=== PATIENT | female | born 1985 | race Caucasian/White ===

== ENCOUNTER 2017-01-15 05:57 | Emergency (ER) | payer OTHER ==
[~2017-01-15] VITALS: Ht 162.6 cm; Wt 64.9 kg
--- NOTE | 2017-01-15 06:05 | ED PSYCHIATRIC COMPLAINT ---
History of Present Illness General Chief Complaint: Psychiatric Related Complaint Stated Complaint: "REALLY BAD PANIC ATTACKS, DEPRESSION" PER PT -SI Source: patient Exam Limitations: no limitations Vital Signs & Intake/Output Vital Signs & Intake/Output Vital Signs Date Time Temp Pulse Resp B/P Pulse O2 O2 Flow FiO2 Ox Delivery Rate 01/15 0625 97.8 91 18 134/88 96 Room Air Reconcile Medications Bupropion HCl (Wellbutrin XL) 150 MG TAB.ER.24H 1 TAB PO QAM DEPRESSION Clonazepam 1 MG TABLET 1 TAB PO BIDP PRN ANXIETY TEN...BD [id number] Triage Nurses Notes Reviewed? yes Onset: Gradual Duration: week(s):, waxing and waning Timing: recent history Severity: moderate Associated Symptoms: anxiety HPI: 31 yo woman h/o long standing anxiety disorder, was previously on clonazepam/xanax/ wellbutrin, presents with continued anxiety. She reports that her physician is no longer able to prescribe controlled substances. She has an appointment at the [facility] in 2 weeks. She denies Si/Hi/Hallucinations. She is otherwise well. Past History Travel History Traveled to [place] past 21 day No Medical History Any Pertinent Medical History? see below for history Surgical History Surgical History: none Family History Hx Contributory? No Review of Systems Review of Systems Constitutional: Reports: no symptoms. EENTM: Reports: no symptoms. Respiratory: Reports: no symptoms. Cardiovascular: Reports: no symptoms. GI: Reports: no symptoms. Genitourinary: Reports: no symptoms. Musculoskeletal: Reports: no symptoms. Skin: Reports: no symptoms. Neurological/Psychological: Reports: no symptoms. Hematologic/Endocrine: Reports: no symptoms. Immunologic/Allergic: Reports: no symptoms. All Other Systems: Reviewed and Negative Physical Exam Physical Exam General Appearance: well developed/nourished, mild distress Head: atraumatic Eyes: Bilateral: normal appearance. Ears, Nose, Throat: normal pharynx, normal ENT inspection, hearing grossly normal Neck: normal inspection, supple Respiratory: normal breath sounds Cardiovascular: regular rate/rhythm Gastrointestinal: soft, non-tender Extremities: normal range of motion Neurological/Psychiatric: no motor/sensory deficits, anxious, oriented x 3 Appearance/Memory/Insight: appropriate appearance, appropriate insight Behavoir/Eye Contact/Speech: cooperative Thoughts/Hallucinations: no apparent hallucination Skin: intact, normal color, warm/dry SAD PERSONS Done? patient not suicidal Progress Differential Diagnosis: anxiety vs depression vs other. Plan of Care: pt denies SI/HI/Hallucinations... has appt in 2 weeks with primary care... I gave bridge rx for wellbutrin and clonazepam as well as referral to care. Encouraged close follow up. Departure Departure Disposition: HOME OR SELF CARE Condition: Stable Clinical Impression Primary Impression: Anxiety Departure Forms: Customer Survey General Discharge Information Prescriptions: Current Visit Scripts Bupropion HCl (Wellbutrin XL) 1 TAB PO QAM #14 TAB Clonazepam 1 TAB PO BIDP PRN ANXIETY #10 TAB TEN...BD [id number]
[2017-01-15] MEDS ORDERED: WELLBUTRIN XL150 M2 PO (06:20)
[2017-01-15] MEDS ORDERED: CLONAZEPAM1 M2 PO ×3 (06:20→06:21)
[2017-01-15 06:25] VITALS: BP 134/88
== END 2017-01-15 06:34 ==
LOC: ERH 05:57
DX: F41.9 Anxiety disorder, unspecified (principal); F13.10 Sedative, hypnotic or anxiolytic abuse, uncomplicated; F11.10 Opioid abuse, uncomplicated; F32.9 Major depressive disorder, single episode, unspecified
CPT/HCPCS: 80307; 81025; G0480

== ENCOUNTER 2017-01-15 20:12 | Emergency (ER) | payer OTHER ==
[~2017-01-15] VITALS: Ht 162.6 cm; Wt 64.9 kg
[~2017-01-15 20:12] MED LIST: CLONAZEPAM1 M2 PO; WELLBUTRIN XL150 M2 PO
--- NOTE | 2017-01-15 20:42 | ED PSYCHIATRIC COMPLAINT ---
History of Present Illness General Chief Complaint: Psychiatric Related Complaint Stated Complaint: BIBA PSYCH EVAL Source: patient, old records, police Exam Limitations: no limitations Vital Signs & Intake/Output Vital Signs & Intake/Output Vital Signs Date Time Temp Pulse Resp B/P Pulse O2 O2 Flow FiO2 Ox Delivery Rate 01/16 0921 98.1 68 18 110/68 98 Room Air 01/16 0718 97.2 64 16 101/66 98 Room Air 01/16 0615 96.9 53 16 98/57 96 Room Air 01/16 0421 96.9 53 16 102/54 95 Room Air 01/16 0241 96.9 62 16 106/58 95 Room Air 01/15 2022 96.2 83 16 108/63 93 Room Air ED Intake and Output 01/16 0000 01/15 1200 Intake Total Output Total Balance Patient 143 lb Weight Reconcile Medications Bupropion HCl (Wellbutrin XL) 150 MG TAB.ER.24H 1 TAB PO QAM DEPRESSION Clonazepam 1 MG TABLET 1 TAB PO BIDP PRN ANXIETY TEN...BD [id number] Triage Note: PT BIBA ON POLICE PAPER. BYSTANDER CALLED 911 AFTER FINDING PT "KNOCKED OUT" IN CAR WITH IGNITION RUNNING. PT WAS SEEN HERE THIS AM, GIVEN RX FOR WELLBUTRIN AND CLONOPIN BY . UPON ARRIVAL PT IS CALM AND COOPERATIVE. SLIGHTLY SLURRED SPEECH. PT DENIES SI/HI. PT STATES SHE HAS NOT BEEN SLEEPING, TOOK THE MEDICATIONS PRESCRIBED AND WAS "JUST RESTING MY EYES". Triage Nurses Notes Reviewed? yes Onset: Afternoon Duration: hour(s):, constant, continues in ED Timing: recent history Severity: moderate Associated Symptoms: anxiety, impaired concentration, insomnia LMP (ages 10-50): unknown : No Patient currently breastfeeds: No HPI: Patient was seen early in the day for anxiety depression prescribed Wellbutrin and Klonopin. She reports having issues with her significant other financial issues with the rent and insomnia that have continued. She took her medication and later was found behind while the car difficult to arouse by the police. When she awoke she requested help for depression. Currently she denies fever chills nausea vomiting diarrhea abdominal pain chest pain shortness breath headache dysuria rash bleeding suicidal ideation homicidal ideation hallucination. She currently does not want to speak to crisis. Mother contacted patient reportedly abuses prescription medications and feels anxiety depression in to be evaluated. (HIPONA MD,GENA) Allergies Coded Allergies: No Known Allergies (01/16/17) (REGINA DE LOS SANTOS,MARIS Lawrence) Past History Travel History Traveled to [place] past 21 day No Medical History Any Pertinent Medical History? see below for history Psychiatric: anxiety, depression Surgical History Surgical History: none Psychosocial History What is your primary language Maltese Tobacco Use: Current Daily Use Daily Tobacco Use Amount/Type: =< 4 Cigarettes daily Family History Hx Contributory? No (GENA RODNEY MD) Review of Systems Review of Systems Constitutional: Reports: see HPI, weakness. EENTM: Reports: no symptoms. Respiratory: Reports: no symptoms. Cardiovascular: Reports: no symptoms. GI: Reports: no symptoms. Genitourinary: Reports: no symptoms. Musculoskeletal: Reports: no symptoms. Skin: Reports: no symptoms. Neurological/Psychological: Reports: see HPI, anxiety, depressed, emotional problems. Hematologic/Endocrine: Reports: no symptoms. Immunologic/Allergic: Reports: no symptoms. All Other Systems: Reviewed and Negative (GENA RODNEY MD) Physical Exam Physical Exam General Appearance: well developed/nourished, mild distress Head: atraumatic Eyes: Bilateral: PERRL, EOMI. Ears, Nose, Throat: normal pharynx, normal ENT inspection, hearing grossly normal Neck: normal inspection, supple Respiratory: normal breath sounds Cardiovascular: regular rate/rhythm Gastrointestinal: soft, non-tender Extremities: normal range of motion Neurological/Psychiatric: no motor/sensory deficits, awake, anxious, limnologist II-XII nml as tested, oriented x 3 Appearance/Memory/Insight: disheveled, impaired insight Behavoir/Eye Contact/Speech: cooperative, decreased rate of speech Thoughts/Hallucinations: no apparent hallucination Skin: intact, normal color, warm/dry SAD PERSONS Done? patient not suicidal (GENA RODNEY MD) Progress Differential Diagnosis: drug intoxication, drug overdose Plan of Care: Orders Procedure Date/time Status Regular Diet 01/16 B Active ED CRISIS PSYCH CONSULT 01/16 0111 Active SALICYLATE 01/15 2253 Complete URINE DRUGS OF ABUSE 01/15 2217 Complete URINE 01/15 2217 Complete COMPREHENSIVE METABOLIC PANEL 01/15 2217 Complete CBC WITHOUT DIFFERENTIAL 01/15 2217 Complete Patient Safety Monitor 01/16 2032 Active Laboratory Tests 01/15/17 2302: Urine Opiates Screen < 100.00, Methadone Screen > 735 H, Barbiturate Screen < 60, Ur Phencyclidine Scrn 7.90, Amphetamines Screen < 100, U Benzodiazepines Scrn > 800 H, Urine Cocaine Screen 66, Urine Cannabis Screen < 5.00, Urine Test NEGATIVE 01/15/173: Anion Gap 10, Estimated GFR > 60, BUN/Creatinine Ratio 13.8, Glucose 93, Calcium 9.5, Total Bilirubin 0.3, AST 17, ALT 31, Alkaline Phosphatase 60, Total Protein 6.5, Albumin 4.1, Globulin 2.4, Albumin/Globulin Ratio 1.7, CBC w Diff NO MAN DIFF REQ, RBC 3.74 L, MCV 89.8, MCH 30.0, RDW 13.4, MPV 8.0, Gran % 49.9, Lymphocytes % 37.4, Monocytes % 7.5, Eosinophils % 4.6, Basophils % 0.6, Absolute Granulocytes 2.6, Absolute Lymphocytes 2.0, Absolute Monocytes 0.4, Absolute Eosinophils 0.2, Absolute Basophils 0, PUBS MCHC 33.5, Salicylates < 1.0 01/15/172031: Salicylates Cancelled 01/15/172031: CBC w Diff Cancelled, WBC Cancelled, RBC Cancelled, Hgb Cancelled, Hct Cancelled , MCV Cancelled, MCH Cancelled, RDW Cancelled, Plt Count Cancelled, MPV Cancelled, PUBS MCHC Cancelled, Methadone Screen Cancelled, Barbiturate Screen Cancelled, Ur Phencyclidine Scrn Cancelled, Amphetamines Screen Cancelled, U Benzodiazepines Scrn Cancelled, Urine Cocaine Screen Cancelled, Urine Cannabis Screen Cancelled, Urine Test Cancelled Hand-Off Endorsed To: MARIS TAPIA MD Endorsed Time: 0700 Pending: consult (GENA RODNEY MD) Comments: 01/16/2017 11:08:59 AM patient has been evaluated by crisis and is felt to be stable for outpatient management. (REGINA DE LOS SANTOS,MARIS Lawrence) Departure Departure Disposition: HOME OR SELF CARE Condition: Stable Clinical Impression Primary Impression: Anxiety and depression Secondary Impressions: Benzodiazepine abuse, Opiate abuse, continuous Referrals: UNKNOWN (PCP/Family) Departure Forms: [employer]SEL[employer] RE[employer]ENCE Customer Survey General Discharge Information (GENA RODNEY MD) Departure Additional Instructions: Follow-up with your appointment scheduled today at noon. Notify your primary care physician of this emergency department visit treatment plan and arrange for follow-up appointment. Return if any concerns or sudden worsening. (REGINA DE LOS SANTOS,MARIS Lawrence)
[2017-01-15 23:13] LABS: ABSOLUTE BASOPHIL COUNT 0 /CUMM (0.0-0.2); ABSOLUTE EOSINOPHIL COUNT 0.2 /CUMM (0.0-0.7); ABSOLUTE GRANULOCYTE CT 2.6 /CUMM (1.4-6.5); ABSOLUTE MONOCYTE COUNT 0.4 /CUMM (0.10-0.60); BASOPHIL % 0.6 % (0.0-2.0); EOSINOPHIL % 4.6 % (0-5); GRANULOCYTE % 49.9 % (42.2-75.2); HEMATOCRIT 33.6 % (37-47); MEAN CORPUSCULAR HGB CONC 33.5 G/DL (33.0-37.0); MEAN CORPUSCULAR VOLUME 89.8 FL (81.0-99.0); PLATELET COUNT 267 /CUMM (130-400); RBC DISTRIBUTION WIDTH 13.4 % (11.5-14.5); RED BLOOD CELL CT 3.74 /CUMM (4.20-5.40); WHITE BLOOD CELL COUNT 5.3 /CUMM (4.8-10.8)
--- NOTE | 2017-01-16 11:08 | ED PSYCH CRISIS CONSULTATION ---
Crisis Consult Basic Assessment Date of Consult: 01/16/17 Responsible Person/Accompanied By: Self Insurance Authorization: Insurance #1: Insurance name: AIYANA CHING Phone number: Policy number: [id number] Group number: Authorization number: ED Provider: Patient's ED Provider: GENA RODNEY MD Primary Care Physician: Patient's PCP: UNKNOWN PCP's Phone Number: Current Psychiatrist: Meek Bowers MD Chief Complaint: Psychiatric Related Complaint Patient's Quote: "I feel better" "I felt I was having a nervous breakdown' Present Illness: Pt is a 31 year old single female, BIBA on PEER. The PEER report indicates the pt was lemon picker by the police as she was sleeping in her car last night, in the parking lot of [facility] on [address] [facility]. Upon interviewing the pt, she states "I've been very depression and I'm asking for help". Pt states he is overwhelmed with bills and a recent miscarriage (2 months) and her boyfriend is now in senior living. Pt is now left to manage the apartment and the bills without her boyfriend. Presenting problem, "I have no motivation, I'm depressed, I'm not eating, I feel anxious and overwhelmed". Pt states she is originally from [place], her parents live in [place] and she was on her way to [place] when she stopped at [facility]. "I just put my head down to take a quick nap when the police came to my car". Pt was alert and oriented. Good eye contact, clear, articulate speech. Pt was medicated with Methadone this morning 85mgs. Pt denies SI/HI, "I never had thoughts to kill myself". "I'm just very depressed and I have anxiety". Pt states she stopped taking her medications (Lexapro 20mgs, Welbutrin 75mgs Klonopin 1mg and Xanax 1mg 4x daily. "I stopped taking them when I was trying to get ". Pt is currently in the Methadone Maintainence program at the [facility] in [place]. She was also a pt at [place] [address] [address] [facility] [address]. Reji Ko [phone]. Pt states she was seen by a Dr. Kumari who precribed her the medications including Xanax and Klonopin. However, the doctor is now being investigated for Medicaid Fraud. Hence, she is in the process of looking for another provider. Pt was seen at [facility] on . Pt was referred to [facility] after she called the insurance company and they suggested [facility]. This clinician contacted the [facility] at [facility] and spoke to a Aide who confirmed that the pt has an outpatient appointment today 01/16/17 at 12pm. Pt is very motivation to get back on her medications for depression. "I'm just trying to get help' she repeated several times. Pt denies previous inpatient hospitalization for mental health. She denies substance abuse at this time but admits she is on Methadone Maintainance. Pt want to be discharged so that she can attend her outpatient appointment at 12pm today. Patient's Address: [address] [place] [address] Other Phone Number: Who Do You Live With? Friend Family/Informants Interviewed: no family/collateral ID'd Allergies - Coded Allergies: No Known Allergies (01/16/17) Current Medications - Scheduled Medications Bupropion HCl (Wellbutrin XL) 150 MG TAB.ER.24H 1 TAB PO QAM DEPRESSION #14 TAB Prescribed by IRVING MAY MD on 01/15/17 Scheduled PRN Medications Clonazepam 1 MG TABLET 1 TAB PO BIDP PRN ANXIETY #10 TAB Prescribed by IRVING MAY MD on 01/15/17 Laboratory Results: Laboratory Tests 01/15/17 2302: Urine Opiates Screen < 100.00, Methadone Screen > 735 H, Barbiturate Screen < 60, Ur Phencyclidine Scrn 7.90, Amphetamines Screen < 100, U Benzodiazepines Scrn > 800 H, Urine Cocaine Screen 66, Urine Cannabis Screen < 5.00, Urine Test NEGATIVE 01/15/17 2253: Anion Gap 10, Estimated GFR > 60, BUN/Creatinine Ratio 13.8, Glucose 93, Calcium 9.5, Total Bilirubin 0.3, AST 17, ALT 31, Alkaline Phosphatase 60, Total Protein 6.5, Albumin 4.1, Globulin 2.4, Albumin/Globulin Ratio 1.7, CBC w Diff NO MAN DIFF REQ, RBC 3.74 L, MCV 89.8, MCH 30.0, RDW 13.4, MPV 8.0, Gran % 49.9, Lymphocytes % 37.4, Monocytes % 7.5, Eosinophils % 4.6, Basophils % 0.6, Absolute Granulocytes 2.6, Absolute Lymphocytes 2.0, Absolute Monocytes 0.4, Absolute Eosinophils 0.2, Absolute Basophils 0, PUBS MCHC 33.5, Salicylates < 1.0 01/15/172031: Salicylates Cancelled 01/15/172031: CBC w Diff Cancelled, WBC Cancelled, RBC Cancelled, Hgb Cancelled, Hct Cancelled , MCV Cancelled, MCH Cancelled, RDW Cancelled, Plt Count Cancelled, MPV Cancelled, PUBS MCHC Cancelled, Methadone Screen Cancelled, Barbiturate Screen Cancelled, Ur Phencyclidine Scrn Cancelled, Amphetamines Screen Cancelled, U Benzodiazepines Scrn Cancelled, Urine Cocaine Screen Cancelled, Urine Cannabis Screen Cancelled, Urine Test Cancelled Past History Past Medical History Psychiatric: anxiety, depression, opioid dependence Past Surgical History Surgical History: 1 Psychosocial History Strengths/Capabilities: Pt is actively seeking mental health treatment Pt has insight into her mental health and want to work with a provider who will help to manage her depression but a safe medication that will allow her to be able to get . Physical Limitations (Interventions): None Psychiatric Treatment History Psych Treatment Psychiatric Treatment Yes Inpatient Treatment No Outpatient Treatment Yes Location of Treatment [facility] Reason for Treatment Methadone Maintainance Depression & Anxiety Dates of Treatment Ongoing Response to Treatment Fair Diagnosis by History: Depression & Anxiety Substance Use/Abuse History Drug Use/Abuse Substances Used/Abused No First Use Teenager Last Used About 6 months How much used/taken Unknown How often None at this time For how long n/a Route of use n/a Substance Abuse Treatment Substance Abuse Treatment Past Substance Abuse TX Yes Inpatient Treatment No Outpatient Treatment Yes Location of Treatment [facility] Reason for Treatment Opioid Dependence, Methadone Maintainance Dates of Treatment Ongoing currently and active patient with [facility]. Response to Treatment Fair Current Mental Status Mental Status Orientation: Current situation Affect: Anxious, Depressed, Sad Speech: Pressured, WNL Neuro-vegetative: Appetite Decreased, Loss of Interest, Sleep Disturbance Appearance Appearance- Dress/Hygiene: Tidy appearance, wearing hospital clothing. Behaviors Thought Process: WNL Thought Content: WNL Memory: WNL Insight: Fair SI/HI Risk Assessment Past Suicidal Ideation/Attempts No Current Suicidal Ideation/Att No Past Homicidal Ideation/Att: No Current Homicidal Ideation/Attempts No Degree of Intent: None Danger To: n/a Gravely Disabled: n/a Risk Factors: high anxiety/distress, substance abuse, lives alone Lethality Ratin PTSD Checklist PTSD Done? patient declined ED Management Sitter: Yes Restraints: No DSM5/PS Stressors/Medical Prob Diagnosis' (DSM 5, Stressors, Medical): F32.9 Depressive Disorder Unspecified. F41.1 Anxiety F11.20 Opioid Use Disorder (currently in remission on Methadone Maintainence) Medical Condition s/p misscarriage (2 months), Fertility Problems, Ovairan Cyst. Psychosocial Problems , Unemployed Current GAF: 30 Departure Disposition Psych Medical Clearance Date: 01/16/17 Medically Cleared at: 0800 Time Started: 0945 Time Ended: 1010 Psychiatrist Consulted: Meek Bowers MD Date Disposition Established: 01/16/17 Time Disposition Established: 1010 Plan for Disposition - Modality: Outpatient Facility: Patient to Arrange ([facility]) Follow-up Appt Date: 01/16/17 Follow-Up Appt Time: 1200 Contact: Aide Rationale for Disposition: Pt denies SI/HI, Pt's presented to the ED with symptoms of depression and anxiety. Pt admitted she stopped taking her psychotropic medications a couple of months ago and now she wants to get back on her medications. Pt has an appointment for outpatient services with [facility] for 01/16/17 at 12pm. Pt was discharged to attend her ouptient appointment at [facility]. Referrals UNKNOWN (PCP/Family)
[2017-01-16 11:18] VITALS: BP 112/70
--- NOTE | 2017-01-16 16:42 | ED PSY CRISIS COLLATERAL NOTE ---
Collateral Note Collateral Note Family/Inform/Moira Contacts: cook specialty foreign food contacted the [place] police department at [address] [place] [address] and spoke to Photocopying Equipment Mechanic [id number] and requested a Live Well Check for Luisana Carter, 31 year old female, 5'4" 143 Ibs. Clinician shared with the bottle washing machine operator that Luisana did not show up to the [facility] appointment that she was discharged to today at 12pm. As well she was crab picker by the police last night and brought to [place] ED, by the police after she was found sleeping in her car. At this time Luisana's mother contacted [facility] ed to say she was not able to get in contact with her daughter, and she is concerned for Luisana's safety The Photocopying Equipment Mechanic will send an officer out to [address] [place] [address], [facility]. The police department was given Crisis phone # to contact us with any information.
--- NOTE | 2017-01-16 17:23 | ED PSY CRISIS COLLATERAL NOTE ---
Collateral Note Collateral Note Family/Inform/Moira Contacts: Eap Clinician contacted Aide at [facility] to confirm that the pt had an outpatient appointment today. Aide said yes the patient had an appointment at 12pm. However, Aide also reported the pt did not show up for her 12pm appointment today.
--- NOTE | 2017-01-16 17:26 | ED PSY CRISIS COLLATERAL NOTE ---
Collateral Note Collateral Note Family/Inform/Moira Contacts: Phone contact with Omar the dispatcher from [place] [employer]. The police did go out to to a live well check at [address] [place] [address] but no one was home at the time.
--- NOTE | 2017-01-19 14:19 | ED PSY CRISIS COLLATERAL NOTE ---
Collateral Note Collateral Note Family/Inform/Moira Contacts: Crisis called pt to check in . She expressed that she is doing much better since her ED visit and denies any SI ot sx of depression. Pt agreed to return to the ED if sx return or if she has any SI. pt reports that she started going to therapy and finds it helpful.
== END 2017-01-16 11:24 ==
LOC: ERH 20:12
PROVIDERS: Emergency Medicine
DX: F13.10 Sedative, hypnotic or anxiolytic abuse, uncomplicated (principal); F11.10 Opioid abuse, uncomplicated; F41.9 Anxiety disorder, unspecified; F32.9 Major depressive disorder, single episode, unspecified
CPT/HCPCS: 80307; 81025; G0463; G0480